=== PATIENT | female | born 1985 | race Caucasian/White ===

== ENCOUNTER → 2017-11-26 08:02 | Outpatient (CLI) | payer MEDICAID, SELFPAY ==
--- NOTE | 2017-11-26 10:26 | NEURO ---
NCS and/or EMG Patient Report Ordering Doctor: eliezer hunter DATE OF SERVICE: 11/26/17 Is a right lower extremity nerve conduction study performed on this 32-year-old otherwise healthy female who is experienced a 3-4 month history of decreased and uncomfortable sensations worse when she is supine involving her anterior lateral right thigh. This happened without trigger. She denies any weakness or back pain. Graft right lower extremity sensory and motor nerve conduction study demonstrates normal sural sensory responses, normal tibial motor and common peroneal motor responses, normal tibial and common peroneal F waves, and normal H reflexes from the tibial nerves. Impression: Normal nerve conduction study of the right lower extremity. Symptoms are consistent with meralgia paresthetica.
== END ==
PROVIDERS: Family Provider Family Medicine; PCP Family Medicine
DX: M54.17 Radiculopathy, lumbosacral region (principal); R20.2 Paresthesia of skin
CPT/HCPCS: 95909